=== PATIENT | male | born 1985 | race African-American/Black ===

== ENCOUNTER 2017-06-25 17:37 | Emergency (ER) | payer MEDICAID ==
[~2017-06-25] VITALS: Ht 170.2 cm; Wt 80.0 kg
[2017-06-25 17:51] VITALS: BP 121/79
== END 2017-06-25 20:55 | disposition left against medical advice (07) ==
LOC: ER 17:37
DX: Z53.21 Procedure and treatment not carried out due to patient leaving prior to being seen by health care provider (principal)